=== PATIENT | female | born 1955 | race Caucasian/White ===

== ENCOUNTER 2018-12-03 13:34 | Outpatient (CLI) | payer MEDICARE ==
--- NOTE | 2018-12-03 14:40 | MMO ---
Bilateral MAMMO Bilat Diag [facility]. CLINICAL HISTORY: Patient is 63 years old and is seen for diagnostic exam and palpable abnormality in the left breast. The patient has no family history of breast cancer. The patient has no personal history of cancer. VIEWS: The views performed were: bilateral craniocaudal with tomosynthesis; bilateral mediolateral oblique with tomosynthesis; bilateral mediolateral; and bilateral Implant displaced. FILMS COMPARED: The present examination has been compared to prior imaging studies performed at [facility] on 12/03/2018, and at [facility] on 02/28/2012 and 12/30/2013. MAMMOGRAM FINDINGS: There are scattered fibroglandular densities. There are stable benign appearing calcifications seen in both breasts. There are no suspicious masses, suspicious calcifications, or new areas of architectural distortion. IMPRESSION: THERE IS NO MAMMOGRAPHIC EVIDENCE OF MALIGNANCY. A ROUTINE FOLLOW-UP MAMMOGRAM IN 1 YEAR IS RECOMMENDED. THE RESULTS OF THIS EXAM WERE SENT TO THE PATIENT. ACR BI-RADS Category 2 - Benign finding MAMMOGRAPHY NOTE: 1. A negative mammogram report should not delay a biopsy if a dominant of clinically suspicious mass is present. 2. Approximately 10% to 15% of breast cancers are not detected by mammography. 3. Adenosis and dense breasts may obscure an underlying neoplasm.
--- NOTE | 2018-12-03 15:15 | ULT ---
LEFT BREAST ULTRASOUND: 12/03/18 HISTORY: Palpable mass in the lower inner aspect of the left breast. Patient had history of subcutaneous maste ctomies when she was 24 years of age. This was followed by bilateral silicone breast implants were in itially replaced with saline breast implants. COMPARISON: Mammogram 12/03/18, 12/30/13. TECHNIQUE: Multiplanar [place] scale and color Doppler images were obtained in a target ultrasound of the left [address]. FINDINGS: At the area of palpable abnormality in the left breast, normal appearing breast parenchyma and the pa tient's saline breast implant are seen. No solid mass or suspicious shadowing is seen. There is a sma ll amount of architectural distortion adjacent to the implant which likely represents scarring. IMPRESSION: BIRADS 2: Benign Finding(s) Routine annual screening mammography (for women over age 40). POS: [facility]
== END 2018-12-03 13:35 | disposition home or self-care (01) ==
LOC: BICMAMMO 13:34
PROVIDERS: ATTEND Family Medicine
DX: N63.20 Unspecified lump in the left breast, unspecified quadrant (principal); Z98.82 Breast implant status; Z80.3 Family history of malignant neoplasm of breast
CPT/HCPCS: 76642; 77066; G0279